=== PATIENT | female | born 1970 | race Caucasian/White ===

== ENCOUNTER 2020-08-13 10:39 | Observation (INO) | payer OTHER ==
[~2020-08-13] VITALS: Ht 162.6 cm; Wt 70.0 kg
[2020-08-13 11:21] VITALS: BP 114/79
[2020-08-13] MEDS ORDERED: LOSA1TAB22 PO (11:29)
[2020-08-13] MEDS ORDERED: LACTATED RINGERS 1,000 ML IV SCH (11:30)
[2020-08-13] MEDS ORDERED: CHLORHEXIDINE 15 ML UDC PO ONE (11:30)
[2020-08-13] MEDS ORDERED: PLEASE ENTER ALLERGIES MC SCH (11:30)
[2020-08-13] MEDS ORDERED: CHLORHEXIDINE 15 ML UDC ONE (11:31)
[2020-08-13 11:33] LABS: HCG UR SG 1.008 (1.003-1.030); MICROSCOPIC AUTO
[2020-08-13] MEDS ORDERED: potassium PO (11:52)
[2020-08-13 12:24] LABS: BASOPHILS % (AUTO) 1 % (0-1); EOSINOPHILS % (AUTO) 1 % (1-7); LYMPHOCYTES % (AUTO) 30 % (22-44); MD NO; MEAN CORPUSCULAR HEMOGLOBIN 30.6 pg (27.0-34.8); MEAN CORPUSCULAR HGB CONC 34.7 g/dL (32.4-35.8); MONOCYTES % (AUTO) 8 % (2-9); NEUTROPHILS % (AUTO) 60 % (42-75); PLATELET COUNT 260 x10^3/uL (130-400); RED BLOOD COUNT 4.35 x10^6/uL (3.82-5.3)
[2020-08-13] MEDS ORDERED: MIDAZOLAM 1 MG/ML, 2ML ONE (12:24)
[2020-08-13] MEDS ORDERED: FENTANYL PF 250 MCG/5ML ONE (12:24)
[2020-08-13] MEDS ORDERED: CEFAZOLIN 1,000 MG ONE (12:25)
[2020-08-13] MEDS ORDERED: NEOSTIGMINE 1 MG/ML, 10ML ONE (12:25)
[2020-08-13] MEDS ORDERED: PROPOFOL 10 MG/ML, 20ML ONE (12:25)
[2020-08-13] MEDS ORDERED: ROCURONIUM 10MG/ML,5ML ONE (12:25)
[2020-08-13] MEDS ORDERED: ONDANSETRON 2MG/ML, 2ML ONE (12:25)
[2020-08-13] MEDS ORDERED: KETOROLAC 30 MG/1 ML ONE (12:25)
[2020-08-13] MEDS ORDERED: GLYCOPYRROLATE 0.2MG/1ML, 5ML ONE (12:25)
[2020-08-13] MEDS ORDERED: DEXAMETHASONE 4 MG/ML, 1ML ONE (12:25)
[2020-08-13 12:29] LABS: ALANINE AMINOTRANSFERASE 20 U/L (12-78); ALBUMIN 3.8 g/dL (3.4-5.0); ANION GAP 6 mmol/L (5-15); CALCIUM 8.5 mg/dL (8.5-10.1); CHLORIDE 105 mmol/L (98-107); CREATININE 0.72 mg/dL (0.55-1.02)
[2020-08-13 12:31] LABS: ALKALINE PHOSPHATASE 64 U/L (45-117); BILIRUBIN,TOTAL 0.8 mg/dL (0.2-1.0); TOTAL PROTEIN 7.4 g/dL (6.4-8.2)
[2020-08-13] MEDS ORDERED: ACETAMINOPHEN 325 MG TABLET PO PRN (13:00)
[2020-08-13] MEDS ORDERED: LABETALOL 5MG/ML, 20ML IV PRN (13:00)
[2020-08-13] MEDS ORDERED: HALOPERIDOL 5 MG/ML IV PRN (13:00)
[2020-08-13] MEDS ORDERED: PROMETHAZINE 25 MG/ML, 1ML IVPush PRN (13:00)
[2020-08-13] MEDS ORDERED: morphine SULFATE 10 MG/ML, 1ML IVPush PRN (13:00)
[2020-08-13] MEDS ORDERED: OXYcodone 5 MG/5 ML ORAL.SOL UDC PO PRN (13:00)
[2020-08-13] MEDS ORDERED: MEPERIDINE/PF 25MG/0.5ML IVPush PRN (13:00)
[2020-08-13] MEDS ORDERED: HYDROmorphone 1 MG/ML, 1ML INJ IVPush PRN (13:00)
[2020-08-13] MEDS ORDERED: hydrALAzine 20 MG/ML, 1ML IV PRN (13:00)
[2020-08-13] MEDS ORDERED: FENTANYL PF 100 MCG/2ML IV PRN (13:00)
[2020-08-13] MEDS ORDERED: INDIGO CARMINE 0.8%, 5ML ONE (13:01)
[2020-08-13] MEDS ORDERED: EPINEPHRINE 1 MG/ML, 1ML ONE (13:02)
[2020-08-13] MEDS ORDERED: LIDOCAINE/PF 1%, 30ML ONE (13:02)
[2020-08-13] MEDS ORDERED: PHENYLEPHRINE 10 MG/ML ONE (13:16)
[2020-08-13] MEDS ORDERED: FUROSEMIDE 20 MG/2 ML ONE ×2 (13:16→14:38)
[2020-08-13] MEDS ORDERED: HALOPERIDOL 5 MG/ML ONE (15:28)
[2020-08-13 21:28] VITALS: BP 98/62
[2020-08-13] MEDS ORDERED: HYDROcodone/APAP 5/325 TABLET PO PRN (22:00)
[2020-08-13] MEDS ORDERED: KETOROLAC 30 MG/1 ML IV PRN (22:00)
[2020-08-13] MEDS ORDERED: ONDANSETRON 2MG/ML, 2ML IV PRN (22:00)
[2020-08-14 02:28] VITALS: BP 102/63
[2020-08-14 07:50] VITALS: BP 111/69
== END 2020-08-14 10:42 | disposition home or self-care (01) ==
LOC: OUT 10:39 → 4NE 21:20 → OUT 22:32 → 4NE 22:33 → DCLOUNGE 08-14 10:39
PROVIDERS: ADMIT Obstetrics & Gynecology Gynecology; ATTEND Obstetrics & Gynecology Gynecology
DX: N94.6 Dysmenorrhea, unspecified (principal); Z20.822 Contact with and (suspected) exposure to COVID-19; N92.0 Excessive and frequent menstruation with regular cycle; N81.4 Uterovaginal prolapse, unspecified; N94.10 Unspecified dyspareunia; N80.0 Endometriosis of uterus; I10 Essential (primary) hypertension; Z79.899 Other long term (current) drug therapy
CPT/HCPCS: 36415; 57240; 57283; 58262; 80053; 81001; 81025; 85014; 85025; 87635; 88307; 96374; G0378; J0171; J0690; J1100; J1630; J1885; J1940; J2250; J2370; J2405; J2704; J2710; J3010; J3490; J7120